=== PATIENT | female | born 1995 | race American Indian/Alaskan Native ===

== ENCOUNTER 2017-01-05 08:49 | Emergency (ER) | payer SELFPAY ==
[2017-01-05 09:36] LABS: Basophils % (Auto) 0.5 % (0.0-1.8); Eosinophils % (Auto) 1.1 % (0.0-4.3); Hematocrit 41.5 % (30.3-42.9); Hemoglobin 14.1 gm/dl (10.1-14.3); Mean Corpuscular HGB Conc 34 % (30-34); Mean Corpuscular Hemoglobin 32 pg (28-32); Mean Corpuscular Volume 94 fl (79-97); Platelet Count 273 K/mm3 (140-440); Red Cell Distribution Width 12.9 % (13.2-15.2); White Blood Count 6.2 K/mm3 (4.5-11.0)
--- NOTE | 2017-01-05 11:48 | Emergency Department Report ---
HPI - General Chief Complaint: Vaginal Bleeding Time Seen by Provider: 01/05/17 11:35 - HPI HPI: This is a 21-year-old Afro-[place] female presents to the emergency department by EMS with complaint of pelvic cramping/pain and vaginal bleeding while . The patient is and her last menstrual cycle was October 30. She went to [facility] yesterday after she started developing some bleeding and says that they saw a gestational sac and yolk sac but no pole or cardiac activity and she was told to follow-up in a few days as it might be a early versus a miscarriage. However this morning the patient had increased vaginal bleeding and passed a clot about 1 hour prior to presentation. She denies any past medical history. She is not currently on vitamins. She does not have an [employer] [facility] [employer] [facility]. ED Past Medical Hx - Past Medical History Previous Medical History?: No - Surgical History Past Surgical History?: No - Social History Smoking Status: Never Smoker Substance Use Type: None - Medications Home Medications: Home Medications Medication Instructions Recorded Confirmed Last Taken Type No Known Home Medications [No 01/05/17 01/05/17 Unknown History Reported Home Medications] ED Review of Systems ROS: Stated complaint: PREGN/VAG BLEEDING/CRAMPING Other details as noted in HPI Comment: All other systems reviewed and negative Constitutional: denies: chills, fever Eyes: denies: eye pain, eye discharge, vision change ENT: denies: ear pain, throat pain Respiratory: denies: cough, shortness of breath, wheezing Cardiovascular: denies: chest pain, palpitations Gastrointestinal: abdominal pain. denies: nausea, vomiting Genitourinary: other (vaginal bleeding). denies: dysuria, discharge Musculoskeletal: denies: back pain, joint swelling, arthralgia Skin: denies: rash, lesions Neurological: denies: headache, weakness, paresthesias Physical Exam - Physical Exam Vital Signs: Vital Signs 01/05/17 09:01 Temperature 98.2 F Pulse Rate 91 H Respiratory 15 Rate Blood Pressure 105/64 O2 Sat by Pulse 98 Oximetry Physical Exam: GENERAL: The patient is well-developed well-nourished. HEENT: Normocephalic. Atraumatic. Extraocular motions are intact. Patient has moist mucous membranes. Pupils equal reactive to light. NECK: Supple. Trachea is midline. CHEST/LUNGS: Clear to auscultation. There is no respiratory distress noted. HEART/CARDIOVASCULAR: Regular. There is no tachycardia. There is no gallop rub or murmur. ABDOMEN: Abdomen is soft, nontender. No guarding rebound tenderness. Patient has normal bowel sounds. There is no abdominal distention. SKIN: Skin is warm and dry. NEURO: The patient is awake, alert, and oriented. The patient is cooperative. The patient has no focal neurologic deficits. The patient has normal speech. MUSCULOSKELETAL: There is no tenderness or deformity. There is no limitation range of motion. There is no evidence of acute injury. ED Course Vital Signs 01/05/17 09:01 Temperature 98.2 F Pulse Rate 91 H Respiratory 15 Rate Blood Pressure 105/64 O2 Sat by Pulse 98 Oximetry - Consultations Consultation #1: I spoke with the [employer] [employer] [facility]PERATOR on-call, Dr. Moore, who agrees that it sounds like the patient has a spontaneous miscarriage and there is no further testing or medication necessary in the emergency department at this time. 01/05/17 18:25 ED Medical Decision Making - Lab Data Result diagrams: 01/05/17 09:15 - Radiology Data Radiology results: report reviewed Transvaginal/ ultrasound shows no evidence of any intrauterine . Heterogenous thickened endometrial echo inferiorly may be due to retained products of conception and/or hemorrhage. - Medical Decision Making 22-year-old female presents with continued vaginal bleeding and some abdominal cramping. She had a beta hCG of about 20,000 last night at [facility]. Today the beta-hCG is closer to 12,000. Ultrasound yesterday showed a gestational and yolk sac. Today the ultrasound shows no evidence of intrauterine . Vital signs stable. Labs are unremarkable. Spoke with [facility] [employer] [employer] OPERATOR who agrees the patient is safe for discharge home and follow-up. - Differential Diagnosis , threatened miscarriage, spontaneous miscarriage, fibroids Critical Care Time: No Critical care attestation.: If time is entered above; I have spent that time in minutes in the direct care of this critically ill patient, excluding procedure time. ED Disposition Clinical Impression: Spontaneous miscarriage Disposition: DC-01 TO HOME OR SELFCARE Is pt being admited?: No Condition: Stable Instructions: Spontaneous Miscarriage (ED) Additional Instructions: Please follow-up with an [employer] UP OPERATOR in the near future regarding your miscarriage. Return to the emergency department with any worsening of her symptoms or any acute distress. Referrals: [facility] [Provider Group] - 3-5 Days [facility], [facility] [Provider Group] - 3-5 Days [facility] [Provider Group] - 3-5 Days Time of Disposition: 15:04
[2017-01-05 14:36] VITALS: BP 99/61
--- NOTE | 2017-01-05 14:44 | Ultrasound Report ---
Transabdominal and transvaginal OB ultrasound. History: Heavy vaginal bleeding. Her serum hCG at the time of the study is 14,773. Findings: No prior studies available. There is no evidence of an intrauterine . The endometrial echo is thickened, especially in the region of the cervix and lower uterine segment measuring up to 1.4 cm in diameter and appears somewhat heterogeneous. The right ovary is normal. There is a 1.1 cm cyst in the left ovary. Impression: No evidence of IUP. Heterogeneous thickened endometrial echo inferiorly may be due to retained POC's and/or hemorrhage.
== END 2017-01-05 15:49 | disposition home or self-care (01) ==
LOC: EDBD → ED 08:49
DX: O03.9 Complete or unspecified spontaneous abortion without complication (principal); Z91.018 Allergy to other foods
CPT/HCPCS: 36415; 76801; 76817; 84702; 85025; 86850; 86900; 86901; 99284